=== PATIENT | female | born 1955 | race Caucasian/White ===

== ENCOUNTER 2020-07-02 15:44 | Outpatient (CLI) | payer BC ==
[2020-07-02 19:56] LABS: Bilirubin Neg (Negative); Blood, Urine Negative (Negative); Clarity Clear (Clear); Glucose, Urine (Dipstick) Normal (Negative); Ketone, Urine Negative (Negative); Leukocyte Negative (Negative); Nitrite Negative (Negative); Protein, Urine (Dipstick) Negative (Neg-Trace); Specific Gravity, Urine 1.005 (1.002-1.036); Urobilinogen Normal mg/dL (Less than 2)
[2020-07-02 20:12] LABS: Anion Gap 13 mmol/L (10-20); BUN (Urea Nitrogen) 13 mg/dL (9.8-20.1); Calc. Creatinine Clearance 0 mL/min (70-130); Calcium 9.4 mg/dL (7.8-10.44); Carbon Dioxide 27 mmol/L (23-31); Chloride 102 mmol/L (98-107); Glucose 88 mg/dL (80-115); Potassium 4.1 mmol/L (3.5-5.1); Sodium 138 mmol/L (136-145)
[2020-07-02 20:14] LABS: INR-International Normal Ratio 0.9; Prothrombin Time 10.3 sec (9.5-12.1)
[2020-07-02 20:31] LABS: Bacteria/HPF None Seen HPF (None Seen); RBC/HPF None Seen HPF (0-3); Squamous Epithelial 0-3 HPF (0-3); WBC/HPF None Seen HPF (0-3)
[2020-07-02 20:33] LABS: #Basophils 0.1 10x3/uL (0.0-0.2); #Eosinphils 0.2 10x3/uL (0.0-0.5); #Monocytes 0.5 10x3/uL (0.0-1.1); #Neutrophils 3.5 10x3/uL (1.5-8.4); %Basophils 0.8 % (0.0-2.0); %Eosinophils 3.3 % (0.0-6.0); %Lymphocytes 32.8 % (18.0-47.0); %Monocytes 7.5 % (0.0-10.0); %Neutrophils 55.3 % (40.0-75.0); Mean Corpuscular HGB CONC 33.1 g/dL (32.0-36.0); Mean Corpuscular Hemoglobin 30.5 pg (27.0-33.0); Mean Corpuscular Volume 92.1 fl (81.6-98.3); Mean Platelet Volume 9.8 fl (7.4-10.4); Platelet Count 278 10x3/uL (150-450); RBC Distribution Width 12.7 % (11.5-14.5); Red Blood Cell (RBC) Count 3.93 10x6/uL (3.90-5.03); White Blood Cell (WBC) Count 6.3 10x3/uL (3.5-10.5)
[2020-07-03 13:45] LABS: SARS-CoV-2 NAA Rapid Test Not Detected (NotDetected)
== END 2020-07-02 15:45 | disposition home or self-care (01) ==
LOC: LABBT 15:44
PROVIDERS: ATTEND Orthopaedic Surgery
DX: Z01.818 Encounter for other preprocedural examination (principal); M17.12 Unilateral primary osteoarthritis, left knee; Z20.822 Contact with and (suspected) exposure to COVID-19
CPT/HCPCS: 80048; 81001; 85025; 85610; 87081; 87635; 93005; 93010; U0002; U0003; U0005

== ENCOUNTER 2020-07-07 05:27 | Day surgery (SDC) | payer BC ==
[2020-07-07] MEDS ORDERED: Fentanyl 100 MCG/2 ML VIAL ONE ×5 (05:59→09:47)
[2020-07-07] MEDS ORDERED: Midazolam HCl 2 mg/2 ml Vial ONE (06:14)
[2020-07-07] MEDS ORDERED: Bupivacaine 0.25% HCL 30 ML VIAL ONE (06:34)
[2020-07-07] MEDS ORDERED: Vancomycin 1 GM/200 ML BAG ONE (06:43)
[2020-07-07] MEDS ORDERED: Tranexamic Acid 1,000 MG/10 ML VIAL ONE ×2 (06:43→09:17)
[2020-07-07] MEDS ORDERED: Sodium Chloride 0.9% 100 ML ONE (06:44)
[2020-07-07] MEDS ORDERED: Clindamycin/D5W 900 mg/50 ml Premix Bag ONE (06:48)
[2020-07-07] MEDS ORDERED: HYDROcodone/Acetaminophen 10/325 mg Tablet PO PRN ×3 (07:12→08:15)
[2020-07-07] MEDS ORDERED: Zolpidem Tartrate 5 MG TAB PO PRN ×2 (07:12→08:15)
[2020-07-07] MEDS ORDERED: Promethazine HCl 25 MG/ML VIAL IM PRN ×3 (07:12→08:15)
[2020-07-07] MEDS ORDERED: traMADol HCl 50 MG TAB PO PRN ×3 (07:12→08:15)
[2020-07-07] MEDS ORDERED: Ondansetron PF 4 MG/2 ML Vial IVP PRN (07:12)
[2020-07-07] MEDS ORDERED: Acetaminophen 325 MG TAB PO PRN (07:12)
[2020-07-07] MEDS ORDERED: diphenhydrAMINE 25 MG CAP PO PRN (07:12)
[2020-07-07] MEDS ORDERED: Fentanyl 100 MCG/2 ML VIAL SLOW IVP PRN ×2 (07:12→08:10)
[2020-07-07] MEDS ORDERED: Dextrose 50% Abboject 50 ML SYRINGE ONE (07:14)
[2020-07-07] MEDS ORDERED: Lidocaine 1% (PF) 30 ML VIAL ONE (07:14)
[2020-07-07] MEDS ORDERED: methylPREDNISolone Acetate 40 mg/ml Vial ONE (07:14)
[2020-07-07] MEDS ORDERED: Ropivacaine 0.5% HCl/PF (150 MG/30 ML VIAL) ONE (07:15)
[2020-07-07] MEDS ORDERED: Ropivacaine 2% HCl/PF (20 MG/10 ML VIAL) ONE (07:15)
[2020-07-07] MEDS ORDERED: Dexamethasone 20 MG/5 ML VIAL ONE (07:15)
[2020-07-07] MEDS ORDERED: PROPOFOL 200 MG/20 ML VIAL ONE (07:15)
[2020-07-07] MEDS ORDERED: Ondansetron PF 4 MG/2 ML Vial ONE (07:15)
[2020-07-07] MEDS ORDERED: PHENYLEPHRINE-NS 100 MCG/ML 10 ML SYRINGE ONE (07:15)
[2020-07-07] MEDS ORDERED: Tranexamic Acid 1,000 MG in Sodium Chloride 0.9% 100 ML IVPB SCH (07:15)
[2020-07-07] MEDS ORDERED: Ondansetron HCl/PF 4 MG/2 ML Vial IVP PRN (07:52)
[2020-07-07] MEDS ORDERED: HYDROmorphone 2 MG/ML VIAL SLOW IVP PRN (07:52)
[2020-07-07] MEDS ORDERED: Promethazine HCl 25 MG/ML VIAL SLOW IVP PRN (07:52)
[2020-07-07] MEDS ORDERED: Apremilast [Otezla] 30 MG Tablet PO SCH (09:00)
[2020-07-07] MEDS: Aspirin 81 mg Enteric Coated Tablet PO SCH ×2 (11:15→21:04)
[2020-07-07] MEDS: Sodium Chloride 0.9% 1,000 ML IV SCH ×2 (11:15→14:57)
[2020-07-07] MEDS: Docusate 100 MG CAP PO SCH (11:15)
[2020-07-07 11:48] VITALS: BMI 28.1
[2020-07-07] MEDS: Ketorolac Tromethamine 30 MG/ML VIAL IVP SCH ×3 (12:19→23:37)
[2020-07-07] MEDS: Clindamycin/D5W 900 MG in Premix Bag 1 BAG IVPB SCH ×2 (12:19→18:27)
[2020-07-07] MEDS: HYDROcodone/Acetaminophen 10/325 mg Tablet PO PRN ×2 (13:35→18:28)
[2020-07-07] MEDS: Ondansetron PF 4 MG/2 ML Vial IVP PRN (17:20)
[2020-07-07] MEDS ORDERED: Vancomycin 1 GM in Premix Bag 1 BAG IVPB SCH (20:00)
[2020-07-07] MEDS: Ropivacaine HCl/PF 250 ML in Premix Bag 1 BAG NERVE BLCK SCH (20:59)
[2020-07-08 05:22] LABS: Mean Corpuscular HGB CONC 33.7 g/dL (32.0-36.0); Mean Corpuscular Hemoglobin 31.5 pg (27.0-31.0); Mean Corpuscular Volume 93.6 fL (78.0-98.0); Mean Platelet Volume 7.3 fL (7.4-10.4); Platelet Count 238 thou/uL (130-400); RBC Distribution Width 11.7 % (11.5-14.5); White Blood Cell (WBC) Count 13.3 thou/uL (4.8-10.8)
[2020-07-08] MEDS: Ketorolac Tromethamine 30 MG/ML VIAL IVP SCH ×4 (05:52→23:12)
[2020-07-08] MEDS: Sodium Chloride 0.9% 1,000 ML IV SCH ×2 (06:03→18:28)
[2020-07-08] MEDS: HYDROcodone/Acetaminophen 10/325 mg Tablet PO PRN ×4 (07:59→23:14)
[2020-07-08] MEDS: Senokot S 8.6-50 MG TAB PO SCH ×2 (08:00→21:15)
[2020-07-08] MEDS: Multivitamin W/ Minerals 1 TAB PO SCH (08:00)
[2020-07-08] MEDS: Aspirin 81 mg Enteric Coated Tablet PO SCH ×2 (08:00→21:15)
[2020-07-08] MEDS: Docusate 100 MG CAP PO SCH (08:00)
[2020-07-08] MEDS: Ferrous Gluconate 324 MG TAB PO SCH ×2 (09:04→18:06)
[2020-07-08] MEDS: Ondansetron PF 4 MG/2 ML Vial IVP PRN ×2 (10:09→18:46)
[2020-07-08] MEDS: Calcium Carbonate 500 MG ChewTAB PO PRN (13:25)
[2020-07-08] MEDS: Ropivacaine HCl/PF 250 ML in Premix Bag 1 BAG NERVE BLCK SCH (22:52)
[2020-07-09] MEDS: Calcium Carbonate 500 MG ChewTAB PO PRN (02:51)
[2020-07-09 05:31] LABS: Hemoglobin 10.7 g/dL (12.0-16.0); Mean Corpuscular HGB CONC 32.9 g/dL (32.0-36.0); Mean Corpuscular Hemoglobin 31.2 pg (27.0-31.0); Mean Corpuscular Volume 94.8 fL (78.0-98.0); Mean Platelet Volume 7.3 fL (7.4-10.4); Platelet Count 207 thou/uL (130-400); RBC Distribution Width 11.9 % (11.5-14.5); Red Blood Cell (RBC) Count 3.42 mill/uL (4.20-5.40)
[2020-07-09] MEDS: Ketorolac Tromethamine 30 MG/ML VIAL IVP SCH (06:29)
[2020-07-09] MEDS: Sodium Chloride 0.9% 1,000 ML IV SCH (07:54)
[2020-07-09] MEDS: Senokot S 8.6-50 MG TAB PO SCH (08:40)
[2020-07-09] MEDS: Ferrous Gluconate 324 MG TAB PO SCH (08:40)
[2020-07-09] MEDS: Aspirin 81 mg Enteric Coated Tablet PO SCH (08:40)
[2020-07-09] MEDS: HYDROcodone/Acetaminophen 10/325 mg Tablet PO PRN (08:41)
[2020-07-09] MEDS: Docusate 100 MG CAP PO SCH (08:41)
[2020-07-09] MEDS: Multivitamin W/ Minerals 1 TAB PO SCH (08:41)
[2020-07-09 11:44] VITALS: BP 161/77; TEMP 98.1
[2020-07-10] MEDS ORDERED: CeleCOXIB 100 MG CAP PO SCH (09:00)
== END 2020-07-09 12:55 | disposition home or self-care (01) ==
LOC: SDC 05:27 → SJJU 07:12 → EDSTATUS 16:00 → SDC 07-09 12:55
PROVIDERS: ATTEND Orthopaedic Surgery
PROC: 3E0U33Z Introduction of Anti-inflammatory into Joints, Percutaneous Approach (ICD-10-PCS; principal; 2020-07-07)
PROC: 0SRD0J9 Replacement of Left Knee Joint with Synthetic Substitute, Cemented, Open Approach (ICD-10-PCS; principal; 2020-07-07)
DX: M17.0 Bilateral primary osteoarthritis of knee (principal); D64.9 Anemia, unspecified; Z79.899 Other long term (current) drug therapy; Z88.0 Allergy status to penicillin; Z88.2 Allergy status to sulfonamides
CPT/HCPCS: 36415; 85027; C1713; C1776; J1100; J1885; J2001; J2250; J2405; J2550; J2704; J2795; J2920; J3010; J3370; J3490; S0020

== ENCOUNTER 2021-04-01 15:15 | Outpatient (CLI) | payer MEDICARE | END 2021-04-01 15:16 | disposition home or self-care (01) | LOC: LABBT 15:15 | PROVIDERS: ATTEND Orthopaedic Surgery | DX: Z01.818 Encounter for other preprocedural examination (principal); M17.11 Unilateral primary osteoarthritis, right knee; Z20.822 Contact with and (suspected) exposure to COVID-19 | CPT/HCPCS: 71046; 80048; 81003; 85025; 85610; 86850; 86900; 86901; 87081; 93005; U0003; U0005; 93010 ==

== ENCOUNTER 2021-04-06 06:56 | Observation (INO) | payer MEDICARE ==
[2021-04-01 16:38] LABS: #Basophils 0.1 10x3/uL (0.0-0.2); #Eosinphils 0.2 10x3/uL (0.0-0.5); #Monocytes 0.5 10x3/uL (0.0-1.1); #Neutrophils 5.1 10x3/uL (1.5-8.4); %Basophils 0.9 % (0.0-2.0); %Eosinophils 2.2 % (0.0-6.0); %Lymphocytes 26.6 % (18.0-47.0); %Monocytes 5.7 % (0.0-10.0); %Neutrophils 64.3 % (40.0-75.0); Hemoglobin 12.9 g/dL (12.0-15.5); Mean Corpuscular HGB CONC 32.7 g/dL (32.0-36.0); Mean Corpuscular Hemoglobin 30.9 pg (27.0-33.0); Mean Corpuscular Volume 94.7 fl (81.6-98.3); Mean Platelet Volume 9.4 fl (7.4-10.4); Platelet Count 285 10x3/uL (150-450); RBC Distribution Width 12.5 % (11.5-14.5); Red Blood Cell (RBC) Count 4.17 10x6/uL (3.90-5.03); White Blood Cell (WBC) Count 7.9 10x3/uL (3.5-10.5)
[2021-04-01 16:47] LABS: INR-International Normal Ratio 0.9; Prothrombin Time 10.3 sec (9.5-12.1)
[2021-04-01 16:53] LABS: Anion Gap 15 mmol/L (10-20); BUN (Urea Nitrogen) 14 mg/dL (9.8-20.1); Calc. Creatinine Clearance 0 mL/min (70-130); Calcium 9.5 mg/dL (7.8-10.44); Carbon Dioxide 26 mmol/L (23-31); Chloride 105 mmol/L (98-107); Glucose 98 mg/dL (80-115); Potassium 3.8 mmol/L (3.5-5.1); Sodium 142 mmol/L (136-145)
[2021-04-01 17:18] LABS: Bilirubin Neg (Negative); Blood, Urine Negative (Negative); Clarity Clear (Clear); Glucose, Urine (Dipstick) Normal (Negative); Ketone, Urine Negative (Negative); Leukocyte Negative (Negative); Nitrite Negative (Negative); Protein, Urine (Dipstick) Negative (Neg-Trace); Urobilinogen Normal mg/dL (Less than 2)
[2021-04-02 08:57] LABS: SARS-CoV-2 PCR by NAA Not Detected (NotDetected)
[~2021-04-06 06:56] MED LIST: Alendronate Sodium 70 mg Tablet PO SCH
[2021-04-06] MEDS ORDERED: Tranexamic Acid 1,000 MG/10 ML VIAL ONE (07:39)
[2021-04-06] MEDS ORDERED: Sodium Chloride 0.9% 100 ML ONE (07:39)
[2021-04-06] MEDS ORDERED: Vancomycin HCl 1.5 GM in Sodium Chloride 0.9% 250 ML 300 ML IVPB SCH ×2 (07:45→20:00)
[2021-04-06] MEDS ORDERED: Midazolam HCl 2 mg/2 ml Vial ONE (08:17)
[2021-04-06] MEDS ORDERED: Fentanyl 100 MCG/2 ML VIAL ONE ×4 (08:17→12:25)
[2021-04-06] MEDS ORDERED: Scopolamine 1.5 mg/72 hour Patch ONE (08:18)
[2021-04-06] MEDS ORDERED: HYDROmorphone 0.5 MG/0.5 ML SYRINGE ONE (09:18)
[2021-04-06] MEDS ORDERED: Clindamycin/D5W 900 mg/50 ml Premix Bag ONE ×2 (09:20→09:35)
[2021-04-06] MEDS ORDERED: Bupivacaine PF 0.5% 30 ML VIAL ONE (09:20)
[2021-04-06] MEDS ORDERED: PROPOFOL 200 MG/20 ML VIAL ONE (09:42)
[2021-04-06] MEDS ORDERED: Bupivacaine HCl 0.5%/Epinephrine 1:200,000/PF 30 ml Vial ONE (09:42)
[2021-04-06] MEDS ORDERED: Ondansetron PF 4 MG/2 ML Vial ONE (09:42)
[2021-04-06] MEDS ORDERED: Dexamethasone 20 MG/5 ML VIAL ONE (09:42)
[2021-04-06] MEDS ORDERED: Fentanyl 100 MCG/2 ML VIAL IV PRN (09:48)
[2021-04-06] MEDS ORDERED: Acetaminophen 325 MG TAB PO PRN (09:58)
[2021-04-06] MEDS ORDERED: Promethazine HCl 25 MG/ML VIAL IM PRN ×3 (09:58→11:07)
[2021-04-06] MEDS ORDERED: Zolpidem Tartrate 5 MG TAB PO PRN ×2 (09:58→10:00)
[2021-04-06] MEDS ORDERED: Ondansetron PF 4 MG/2 ML Vial IVP PRN ×2 (09:58→10:00)
[2021-04-06] MEDS ORDERED: diphenhydrAMINE 25 MG CAP PO PRN (09:58)
[2021-04-06] MEDS ORDERED: traMADol HCl 50 MG TAB PO PRN ×2 (10:00)
[2021-04-06] MEDS ORDERED: HYDROcodone/Acetaminophen 10/325 mg Tablet PO PRN (10:00)
[2021-04-06] MEDS ORDERED: Tranexamic Acid 1,000 MG in Sodium Chloride 0.9% 100 ML IVPB SCH (10:00)
[2021-04-06] MEDS ORDERED: Ropivacaine 0.2% 550 ML 550 ML NERVE BLCK SCH (10:00)
[2021-04-06] MEDS ORDERED: Ondansetron HCl/PF 4 MG/2 ML Vial IVP PRN (11:07)
[2021-04-06] MEDS ORDERED: Promethazine HCl 25 MG/ML VIAL IVPB PRN (11:07)
[2021-04-06] MEDS ORDERED: HYDROmorphone 2 MG/ML VIAL SLOW IVP PRN (11:07)
[2021-04-06] MEDS: HYDROcodone/Acetaminophen 10/325 mg Tablet PO PRN (16:29)
[2021-04-06] MEDS: Clindamycin/D5W 900 MG in Premix Bag 1 BAG IVPB SCH ×2 (16:44→17:11)
[2021-04-06] MEDS: Sodium Chloride 0.9% 1,000 ML IV SCH ×2 (16:44→17:12)
[2021-04-06] MEDS: Ketorolac Tromethamine 30 MG/ML VIAL IVP SCH ×3 (16:44→23:57)
[2021-04-06] MEDS ORDERED: FLU VACC QS2021-22(65YR UP)/PF 240 MCG/0.7 ML SYRINGE IM ONE (18:15)
[2021-04-06] MEDS ORDERED: Non-Formulary Item 1 EACH (Celecoxib [Celecoxib] 200 MG Capsule) PO SCH (21:00)
[2021-04-06] MEDS ORDERED: Vancomycin 1.5 GRAM/300 ML BAG 1.5 GM in Premix Bag 1 BAG IVPB SCH (21:45)
[2021-04-06] MEDS: Aspirin 81 mg Enteric Coated Tablet PO SCH (21:48)
[2021-04-06] MEDS: CeleCOXIB 100 MG CAP PO SCH (21:48)
[2021-04-06] MEDS: Ferrous Gluconate 324 MG TAB PO SCH (21:49)
[2021-04-06] MEDS: Senokot S 8.6-50 MG TAB PO SCH (21:50)
[2021-04-06] MEDS: Calcium Carbonate 600 MG + Vit D TAB PO SCH (21:50)
[2021-04-07 06:03] LABS: Hemoglobin 10.2 g/dL (12.0-16.0); Mean Corpuscular HGB CONC 33.4 g/dL (32.0-36.0); Mean Corpuscular Hemoglobin 32.2 pg (27.0-31.0); Mean Corpuscular Volume 96.4 fL (78.0-98.0); Mean Platelet Volume 6.9 fL (7.4-10.4); Platelet Count 220 thou/uL (130-400); RBC Distribution Width 11.3 % (11.5-14.5); Red Blood Cell (RBC) Count 3.16 mill/uL (4.20-5.40); White Blood Cell (WBC) Count 9.7 thou/uL (4.8-10.8)
[2021-04-07] MEDS: Sodium Chloride 0.9% 1,000 ML IV SCH ×2 (06:23→16:43)
[2021-04-07] MEDS: Ketorolac Tromethamine 30 MG/ML VIAL IVP SCH ×3 (06:26→17:52)
[2021-04-07] MEDS: HYDROcodone/Acetaminophen 10/325 mg Tablet PO PRN ×2 (07:39→15:31)
[2021-04-07] MEDS ORDERED: Docusate 100 MG CAP PO SCH (09:00)
[2021-04-07] MEDS ORDERED: Non-Formulary Item 1 EACH (Multivitamin [Multi-Vitamin Daily] 1 TABLET Tablet) PO SCH (09:00)
[2021-04-07] MEDS: Calcium Carbonate 600 MG + Vit D TAB PO SCH ×2 (10:29→20:38)
[2021-04-07] MEDS: Aspirin 81 mg Enteric Coated Tablet PO SCH ×2 (10:29→20:38)
[2021-04-07] MEDS: CeleCOXIB 100 MG CAP PO SCH ×2 (10:30→20:38)
[2021-04-07] MEDS: Docusate 100 MG CAP PO SCH (10:30)
[2021-04-07] MEDS: Ferrous Gluconate 324 MG TAB PO SCH ×2 (10:31→20:38)
[2021-04-07] MEDS: Multivitamin W/ Minerals 1 TAB PO SCH (10:34)
[2021-04-07] MEDS: Senokot S 8.6-50 MG TAB PO SCH ×2 (10:46→20:39)
[2021-04-07] MEDS: Multivit, Therapeutic 1 TAB PO SCH (10:46)
[2021-04-07 20:56] VITALS: BMI 28.2
[2021-04-08] MEDS: Ketorolac Tromethamine 30 MG/ML VIAL IVP SCH ×2 (00:29→05:12)
[2021-04-08] MEDS: Sodium Chloride 0.9% 1,000 ML IV SCH ×2 (02:21→12:55)
[2021-04-08 06:33] LABS: Hemoglobin 10.3 g/dL (12.0-16.0); Mean Corpuscular HGB CONC 34.3 g/dL (32.0-36.0); Mean Corpuscular Hemoglobin 33.1 pg (27.0-31.0); Mean Corpuscular Volume 96.5 fL (78.0-98.0); Platelet Count 190 thou/uL (130-400); RBC Distribution Width 11.5 % (11.5-14.5); Red Blood Cell (RBC) Count 3.11 mill/uL (4.20-5.40); White Blood Cell (WBC) Count 8.2 thou/uL (4.8-10.8)
[2021-04-08] MEDS: Multivit, Therapeutic 1 TAB PO SCH (07:48)
[2021-04-08] MEDS: HYDROcodone/Acetaminophen 10/325 mg Tablet PO PRN (09:37)
[2021-04-08] MEDS: Aspirin 81 mg Enteric Coated Tablet PO SCH (09:40)
[2021-04-08] MEDS: CeleCOXIB 100 MG CAP PO SCH (09:41)
[2021-04-08] MEDS: Multivitamin W/ Minerals 1 TAB PO SCH (09:41)
[2021-04-08] MEDS: Ferrous Gluconate 324 MG TAB PO SCH (09:41)
[2021-04-08] MEDS: Calcium Carbonate 600 MG + Vit D TAB PO SCH (09:41)
[2021-04-08] MEDS: Docusate 100 MG CAP PO SCH (09:42)
[2021-04-08] MEDS: Senokot S 8.6-50 MG TAB PO SCH (09:42)
[2021-04-08 12:44] VITALS: BP 120/70; TEMP 98.2
== END 2021-04-08 13:55 | disposition home or self-care (01) ==
LOC: SDC 06:56 → SURG A 16:05
PROVIDERS: ADMIT Orthopaedic Surgery; ATTEND Orthopaedic Surgery
PROC: 0SRC0J9 Replacement of Right Knee Joint with Synthetic Substitute, Cemented, Open Approach (ICD-10-PCS; principal; 2021-04-06)
PROC: 8E0YXBZ Computer Assisted Procedure of Lower Extremity (ICD-10-PCS; 2021-04-06)
PROC: 3E0T3BZ Introduction of Anesthetic Agent into Peripheral Nerves and Plexi, Percutaneous Approach (ICD-10-PCS; 2021-04-06)
DX: M17.11 Unilateral primary osteoarthritis, right knee (principal); Z23 Encounter for immunization; Z79.83 Long term (current) use of bisphosphonates; Z79.899 Other long term (current) drug therapy; Z88.0 Allergy status to penicillin; Z88.2 Allergy status to sulfonamides; Z96.652 Presence of left artificial knee joint; Z20.822 Contact with and (suspected) exposure to COVID-19
CPT/HCPCS: 20985; 27447; 64448; 80048; 81003; 85025; 85027 ×2; 85610; 86850; 86900; 86901; 87081; 90732; 97110 ×2; 97116 ×3; 97139 ×2; 97530 ×2; A4306; C1713; C1776; G0009; U0003; U0005; 36415; 90471; 96374; 96375; 96376; G0378; J1100; J1170; J1885; J2250; J2405; J2704; J2795; J3010; J3370; J3490; J7050; S0020